=== PATIENT | male | born 1950 | race Caucasian/White ===

== ENCOUNTER 2025-02-14 13:18 | Inpatient (IN) | payer OTHER, SELFPAY ==
[2025-02-14] VITALS (17 sets, daily range): BP systolic 93–224; BP diastolic 62–197; BMI 20.9
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
[2025-02-14] MEDS: NSS 1000 IV ×2 (08:41→10:34)
[2025-02-14 09:18] LABS: Hematocrit 38.3 % (39.0-52.0); Hemoglobin 12.8 g/dL (13.0-18.0); Mean Corp Hgb Conc. 33.4 g/dL (33.0-37.0); Mean Corpuscular Volume 89.7 fL (80.0-94.0); Nucleated Red Blood Cells % 0 % (-); Red Cell Dist. Width 13.8 % (11.5-14.5)
[2025-02-14 09:47] LABS: AST (SGOT) 128 U/L (17-59); Albumin 1.3 g/dl (3.5-5.0); Alkaline Phosphatase 28 U/L (38-126); Blood Urea Nitrogen 25 mg/dl (9-20); Calcium 3.7 mg/dl (8.4-10.2); Carbon Dioxide 7 mmol/L (22-30); Chloride 114 mmol/L (98-107); Estimated Creatinine Clearance 64 ml/min; Glucose 84 mg/dl (70-99); Potassium 2.3 mmol/L (3.5-5.1); Sodium 133 mmol/L (135-145); Total Protein 3.0 g/dl (6.3-8.2); eGFR > 60.00
[2025-02-14] MEDS: CALCIUM GLUCONATE 1000 MG IV (10:01)
[2025-02-14 10:07] LABS: ALT (SGPT) 30 U/L (0-50); Magnesium 2.3 mg/dl (1.6-2.3)
[2025-02-14] MEDS: KCL 270 MEQ IV (10:24)
[2025-02-14 10:35] LABS: Platelet Count 71 10^3/uL (130-400)
[2025-02-14] MEDS: CALCIUM GLUCONATE 130 MG IV (11:12)
--- NOTE | 2025-02-14 12:28 | HPS.HSE ---
Addendum entered and electronically signed by Chad Baird MD 02/14/25 13:13:
I saw and examined the patient.
The TETRYL NITRATOR OPERATOR or PA's note was reviewed and I agree with the note.
Comment: 74-year-old male who presents with a fall and was found to have severe electrolyte abnormalities.
Gen: NAD, AAOx3, appears chronically ill and malnourished, cachectic
Eyes: EOMI, PERRLA, no scleral icterus.
Neck: supple.
CV: RRR, +S1/S2, no m/r/g.
Resp: CTAB, no rales, wheezes, or rhonchi.
Abd: +BS, soft, NT, ND
Skin: No rashes.
Neuro: CN 2-12 intact, non-focal.
Psych: Normal mood and affect.
Lab Results
02/14/25 02/14/25
09:02 10:26
WBC 8.5
RBC 4.27 L
Hgb 12.8 L
Hct 38.3 L
MCV 89.7
MCH 30.0
MCHC 33.4
RDW 13.8
Plt Count 71 L
MPV 9.9
Abs Immat Gran (auto) 0.1 H
Absolute Neuts (auto) 7.1 H
Absolute Lymphs (auto) 0.6 L
Absolute Monos (auto) 0.7 H
Absolute Eos (auto) 0.0
Absolute Basos (auto) 0.0
Immature Gran % 0.8 H
Neutrophils % 83.5 H
Lymphocytes % 7.1 L
Monocytes % 8.5
Eosinophils % 0.0
Basophils % 0.1
Nucleated RBC % 0
Sodium 133 L
Potassium 2.3 L*
Chloride 114 H
Carbon Dioxide 7 L*
BUN 25 H
Creatinine 1.0
Estimated Creat Clear 64
eGFR > 60.00
Glucose 84
Lactic Acid 3.2 H
Calcium 3.7 L*
Magnesium 2.3
Total Bilirubin 0.7
AST 128 H
ALT 30
Alkaline Phosphatase 28 L
Creatine Kinase 9094 H
Total Protein 3.0 L
Albumin 1[address] brain: No acute intracranial abnormality. Mild to moderate chronic appearing white matter disease. Small chronic focus of encephalomalacia within the right parietal lobe with adjacent skull defect.
Severe electrolyte abnormalities and mild rhabdomyolysis (non-traumatic):
-Hypocalcemia, hypokalemia
-Lactic acidosis
-non-AG metabolic acidosis
-replete all (IV and some PO)
-aggressive IVF support
-serial BMP, CPK
Cachexia and severe hypoalbuminemia:
-Concern for underlying malignancy
-CT C/A/P with PO/IV contrast
Original Note:
Family Physician
-
Family Physician: * NONE
Chief Complaint
-
Weakness
History of Present Illness
Patient is a 74 y/o male without significant past medical history who presents following a fall. Patient states around 4 am he went out to get something out of his car. He states he slipped on the ice and was not able to get up. He tried to get
into his car but he was unable. A central supply worker found him on the ground next to his car several hours later. Patient denies hitting his head or any other injury related to the fall. He reports he has not had anything to eat in about 8 days
despite having food in his home, and expresses concern he might be depressed. He reports his on Feb 06 a few years ago.
Medical History
Past Medical History
Past Medical History: Reports Other
Additional Past Medical History:
Fractured Skull with TBI
Alcohol Use Disorder - Patient reports no alcohol for about 3 years
Chronic Back Pain
Past Surgical History: Reports Other
Additional Past Surgical History:
Skull Fracture requiring surgery
Social History
Tobacco: Smoker (~1.5 packs per day (Patient reports smoking a carton a week))
Alcohol: Former
Drug: Marijuana
Family History
Family History: Not pertinent
Allergies / Home Medications
Allergies reflects when Allergies were last updated in [facility].
Home Medications with original date entered in [facility]
Allergy/Medication List:
Allergies
Allergy/AdvReac Type Severity Reaction Status Date / Time
Penicillins Allergy Rash Verified 09/21/21 10:28
Home Medications
No Meds [No Current Medications] 02/14/25
Review of Systems
-
A 12 point ROS was completed and negative except as noted: Yes
Constitutional: Reports Weight Loss
Respiratory: Denies Cough or Trouble Breathing
Cardiac: Denies Chest Pain or Palpitations
Neurological: Reports Weakness
Physical Exam
Vital Signs
Vital Signs
Temp Pulse Resp BP Pulse Ox
93.5 F L 75 20 124/84 91
02/14/25 11:20 02/14/25 11:00 02/14/25 10:30 02/14/25 11:00 02/14/25 11:00
Physical Exam
General: Comfortable, Conversant and Other (Appears thin with evidence of temporal wasting)
HEENT: NormoCephalic, Anicteric and Other (Mucous membranes are dry)
Respiratory: Clear and Non Labored Respirations
Cardiac: S1/S2 and Regular Rhythm
GI: Soft and Non Tender
Rectal: Deferred by Provider
Musculoskeletal: No Clubbing, No Cyanosis and No Edema
Skin: Warm and Dry
Neuro: Awake, Alert and No Motor Deficits
Psych: Calm
Laboratory Results
-
02/14/25 09:02
02/14/25 09:02
Laboratory Results
Lactic Acid 3.2 mmol/L (0.7-2.0) H 02/14/25 10:26
Total Bilirubin 0.7 mg/dl (0.2-1.3) 02/14/25 09:02
AST 128 U/L (17-59) H 02/14/25 09:02
ALT 30 U/L (0-50) 02/14/25 09:02
Alkaline Phosphatase 28 U/L (38-126) L 02/14/25 09:[address]:
No acute intracranial abnormality.
Mild to moderate chronic appearing white matter disease. Small chronic focus of encephalomalacia within the right parietal lobe with adjacent skull defect.
Chest X-Ray:
No acute intracranial abnormality.
Mild to moderate chronic appearing white matter disease. Small chronic focus of encephalomalacia within the right parietal lobe with adjacent skull defect.
Data Reviewed
-
Lab Data: Labs Reviewed by me
Impression/Plan
-
Severe Electrolyte Abnormalities including Hypocalcemia, Hypokalemia and Metabolic Acidosis
-Corrected Calcium ~ 6.2 - Check ionized calcium
-Replace calcium IV
-Replace potassium IV and PO
-Recheck BMP and Lactic acid later this afternoon
Hypothermia, suspect related to exposure
-Patient does not appear infected at this point in time
-Continue warming blanket
Rhabdomyolysis
-Continue IVFs
-Recheck CPK in AM
Weight Loss with significant Hypoalbuminemia
-Consult Dietary
-Check Chest/Abd/Pelvis CT to evaluate for underlying malignancy
-Patient expresses concern of depression that may be relating to his poor appetite - Consult Psych
Thrombocytopenia
-Continue to trend
Tobacco Use Disorder
-Encourage smoking cessation
-Offered nicotine patch which patient declined
DVT proph: SCDs
Code Status: Full Code
[2025-02-14 13:27] LABS: Urine Character Clear (Clear)
--- NOTE | 2025-02-14 13:32 | CM ---
Chart reviewed and spoke with pt at ED bedside
Lives alone in 1 [address]
His 2 years ago
His dtr Alley [phone] has called ED about his admission
no DME
Independent with ADLs
no PCP ; has not seen any doctor in 10-15 years
no Pharmacy
no hx of VN nor SNF
DCP is to be discussed
Cm will continue to follow up for any dcp needs
[2025-02-14 13:35] LABS: Urine Squamous Cell 0-2 /LPF (Few)
[2025-02-14 13:36] LABS: Urine White Cell 0-2 /HPF (0-5)
[2025-02-14] MEDS: OMNIPAQUE 50 ML PO (13:36)
[2025-02-14] MEDS: KCL ELIXIR 40 MEQ PO (13:36)
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
[2025-02-14 14:25] LABS: Blood Urea Nitrogen 38 mg/dl (9-20); Calcium 9.1 mg/dl (8.4-10.2); Carbon Dioxide 16 mmol/L (22-30); Chloride 103 mmol/L (98-107); Estimated Creatinine Clearance 49 ml/min; Glucose 100 mg/dl (70-99); Potassium 4.7 mmol/L (3.5-5.1); Sodium 130 mmol/L (135-145); eGFR 57.65
[2025-02-14] MEDS: NORMOSOL-R/PLASMALYTE-A 1000 IV (20:56)
[2025-02-14] MEDS: TYLENOL 650 MG PO (21:13)
[2025-02-15] VITALS (16 sets, daily range): BP systolic 88–130; BP diastolic 56–95; PULSE 90; O2SAT 92
[2025-02-15 04:41] LABS: Hematocrit 53.8 % (39.0-52.0); Hemoglobin 19.2 g/dL (13.0-18.0); Mean Corp Hgb Conc. 35.7 g/dL (33.0-37.0); Mean Corpuscular Volume 86.1 fL (80.0-94.0); Platelet Count 81 10^3/uL (130-400); Red Cell Dist. Width 14.0 % (11.5-14.5)
[2025-02-15 04:49] LABS: ALT (SGPT) 87 U/L (0-50); AST (SGOT) 514 U/L (17-59); Albumin 3.1 g/dl (3.5-5.0); Alkaline Phosphatase 58 U/L (38-126); Blood Urea Nitrogen 35 mg/dl (9-20); Calcium 8.2 mg/dl (8.4-10.2); Carbon Dioxide 21 mmol/L (22-30); Chloride 103 mmol/L (98-107); Estimated Creatinine Clearance 58 ml/min; Glucose 87 mg/dl (70-99); Magnesium 2.9 mg/dl (1.6-2.3); Potassium 5.9 mmol/L (3.5-5.1); Sodium 131 mmol/L (135-145); Total Protein 5.8 g/dl (6.3-8.2); eGFR > 60.00
--- NOTE | 2025-02-15 05:20 | PTCARENOTE ---
Addendum entered by Evangelina Berumen RN 02/15/25 05:33:
Per ED, Bottom wounds were blisters. When Pt arrived wounds were no longer blisters and serosanguineous blood was all over bed.
Original Note:
Pt having loose BM getting in wounds. FMS ordered Pt not tolerating insertion. Rectal Trumpet now in place, Pt appearing to be tolerating well. Pt wound care done again, dressing moderate with serosanguineous fluid odor noted. Pt having some
forgetfulness and confusion this morning. Pt stating he saw a 'cat run right across here'. Pt easily reoriented. labs sent and resulted with abnormals. All findings reported to PARK WORKER verbally while making rounds. Pt temperature has been maintaining
above goal with blankets. Call rosenthal within reach Bed in lowest position and alarm on.
[2025-02-15] MEDS: NSS 1000 IV ×2 (06:40→20:41)
[2025-02-15] MEDS: NORMOSOL-R/PLASMALYTE-A IV (06:42)
--- NOTE | 2025-02-15 07:49 | W.PN.HOSP.TC ---
Today's Communication/Plan
-
see plan
Assessment / Plan
Assessment / Plan
Gen: NAD, AAOx3, appears chronically ill and malnourished, cachectic
Eyes: EOMI, PERRLA, no scleral icterus.
Neck: supple.
CV: remains RRR, +S1/S2, no m/r/g.
Resp: CTAB anteriorly, no rales, wheezes, or rhonchi.
Abd: +BS, soft, NT, ND
Skin: No rashes.
Neuro: remains CN 2-12 intact, non-focal.
Psych: Normal mood and affect.
CTA C/A/P 02/14: Pulmonary parenchymal disease has progressed, as described, especially in the right lower lobe. Possible considerations may include infection, pulmonary edema, interstitial lung disease, or inhalational disorder. Mild emphysematous
lung changes, and mild generalized bronchial wall thickening. No adenopathy in the chest, abdomen, or pelvis. Mild circumferential wall thickening involving the mid to lower esophagus, raising possibility of esophagitis. Fatty infiltration of liver.
Small benign adrenal adenomas. Diverticulosis without acute diverticulitis. Nonspecific small bowel gas pattern, as described, without evidence of bowel obstruction, though clinical correlation would be advised. This could reflect nonspecific
dysmotility, which may be seen with enteritis in the proper clinical setting. Possible mild urinary bladder wall thickening. Consider further evaluation/follow-up cystoscopy. Diffuse osseous demineralization. Scoliosis. Multilevel discogenic and
facet degenerative changes. Stable chronic and chronic appearing compression deformities in the lumbar spine and thoracic spine, as described.
CT brain: No acute intracranial abnormality. Mild to moderate chronic appearing white matter disease. Small chronic focus of encephalomalacia within the right parietal lobe with adjacent skull defect.
Severe electrolyte abnormalities and rhabdomyolysis (non-traumatic):
-On admission hypocalcemia, hypokalemia, lactic acidosis, non-AG metabolic acidosis
-s/p IVFs and electrolyte replacement
-still hypocalcemic. Now hyperkalemic and CPK worsening.
-note, AM labs appears to be erroneous, repeat all AM labs
-cont IVFs
Cachexia and severe hypoalbuminemia:
-likely due to malnutrition
-no obvious evidence of malignancy as per imaging above
Other problems:
Hyponatremia, mild
Thrombocytopenia
Marijuana abuse disorder
Tobacco abuse disorder
h/o alcohol abuse disorder, sober for approximately 3 years
FULL/Lovenox
Anticipated Discharge: > 48 hours
Subjective/Interval History
-
Date of Service: February 15, 2025
Denies CP/SOB/abd pain.
Objective Data
-
Labs:
Laboratory Results
02/15/25
03:50
WBC 8.8
Hgb 19.2 H D
Hct 53.8 H
Plt Count 81 L
Sodium 131 L
Potassium 5.9 H D
Chloride 103
Carbon Dioxide 21 L
BUN 35 H
Creatinine 1.1
Glucose 87
Calcium 8.2 L
Total Bilirubin 1.4 H
AST 514 H*
ALT 87 H
Alkaline Phosphatase 58
Vital Signs:
Vital Signs
Temp Pulse Resp BP Pulse Ox
97.9 F 74 25 103/60 97
02/15/25 07:00 02/15/25 06:00 02/15/25 06:00 02/15/25 06:00 02/15/25 05:06
I&O
02/14/25 02/15/25 02/16/25
06:59 06:59 06:59
Intake Total 1220 / 1220
Output Total 775 / 775
Balance 445 / 445
[2025-02-15 09:45] LABS: Hematocrit 52.3 % (39.0-52.0); Hemoglobin 18.5 g/dL (13.0-18.0); Mean Corp Hgb Conc. 35.4 g/dL (33.0-37.0); Mean Corpuscular Volume 86.7 fL (80.0-94.0); Platelet Count 84 10^3/uL (130-400); Red Cell Dist. Width 14.1 % (11.5-14.5)
[2025-02-15 09:51] LABS: ALT (SGPT) 85 U/L (0-50); AST (SGOT) 484 U/L (17-59); Albumin 3.1 g/dl (3.5-5.0); Alkaline Phosphatase 53 U/L (38-126); Blood Urea Nitrogen 32 mg/dl (9-20); Calcium 8.1 mg/dl (8.4-10.2); Carbon Dioxide 24 mmol/L (22-30); Chloride 102 mmol/L (98-107); Estimated Creatinine Clearance 64 ml/min; Glucose 78 mg/dl (70-99); Magnesium 2.7 mg/dl (1.6-2.3); Potassium 5.3 mmol/L (3.5-5.1); Sodium 131 mmol/L (135-145); Total Protein 5.9 g/dl (6.3-8.2); eGFR > 60.00
[2025-02-15] MEDS: NICODERM TRANSDERMAL 14 MG TRANSDERM (10:00)
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
[2025-02-15] MEDS: LOVENOX 40 MG SC (17:48)
[2025-02-15] MEDS: REMOVE NICOTINE PATCH 1 PATCH REMOVE (20:39)
[2025-02-15 22:07] LABS: Blood Urea Nitrogen 22 mg/dl (9-20); Calcium 7.8 mg/dl (8.4-10.2); Carbon Dioxide 23 mmol/L (22-30); Chloride 100 mmol/L (98-107); Estimated Creatinine Clearance 92 ml/min; Glucose 96 mg/dl (70-99); Potassium 4.6 mmol/L (3.5-5.1); Sodium 127 mmol/L (135-145); eGFR > 60.00
[2025-02-16] VITALS (15 sets, daily range): BP systolic 76–101; BP diastolic 46–74
[2025-02-16] MEDS: NICODERM TRANSDERMAL 14 MG TRANSDERM (07:30)
--- NOTE | 2025-02-16 07:48 | W.PN.HOSP.TC ---
Today's Communication/Plan
-
see plan
Assessment / Plan
Assessment / Plan
Gen: NAD, Awake and alert, appears chronically ill and malnourished, cachectic
Eyes: EOMI, PERRLA, no scleral icterus.
Neck: supple.
CV: irreg/irreg, +S1/S2, no m/r/g.
Resp: CTAB anteriorly, no rales, wheezes, or rhonchi.
Abd: +BS, soft, NT, ND
Skin: No rashes.
Neuro: continues to remain remain CN 2-12 intact, non-focal.
Psych: Normal mood and affect.
CTA C/A/P 02/14: Pulmonary parenchymal disease has progressed, as described, especially in the right lower lobe. Possible considerations may include infection, pulmonary edema, interstitial lung disease, or inhalational disorder. Mild emphysematous
lung changes, and mild generalized bronchial wall thickening. No adenopathy in the chest, abdomen, or pelvis. Mild circumferential wall thickening involving the mid to lower esophagus, raising possibility of esophagitis. Fatty infiltration of liver.
Small benign adrenal adenomas. Diverticulosis without acute diverticulitis. Nonspecific small bowel gas pattern, as described, without evidence of bowel obstruction, though clinical correlation would be advised. This could reflect nonspecific
dysmotility, which may be seen with enteritis in the proper clinical setting. Possible mild urinary bladder wall thickening. Consider further evaluation/follow-up cystoscopy. Diffuse osseous demineralization. Scoliosis. Multilevel discogenic and
facet degenerative changes. Stable chronic and chronic appearing compression deformities in the lumbar spine and thoracic spine, as described.
CT brain: No acute intracranial abnormality. Mild to moderate chronic appearing white matter disease. Small chronic focus of encephalomalacia within the right parietal lobe with adjacent skull defect.
Severe electrolyte abnormalities and rhabdomyolysis (non-traumatic):
-On admission hypocalcemia, hypokalemia, lactic acidosis, non-AG metabolic acidosis
-s/p IVFs and electrolyte replacement
-cont IVFs
-AM labs pending. As per discussion with RN multiple attempts for blood work made, phlebotomy will try later.
Cachexia and severe hypoalbuminemia:
-likely due to malnutrition
-no obvious evidence of malignancy as per imaging above
Other problems:
Hyponatremia, mild
Thrombocytopenia
Marijuana abuse disorder
Tobacco abuse disorder
h/o alcohol abuse disorder, sober for approximately 3 years
FULL/Lovenox
Anticipated Discharge: > 48 hours
Subjective/Interval History
-
Date of Service: February 16, 2025
Denies CP/SOB/abd pain.
Objective Data
-
Labs:
Laboratory Results
02/15/25 02/16/25
20:39 06:00
WBC Pending
Hgb Pending
Hct Pending
Plt Count Pending
Sodium 127 L Pending
Potassium 4.6 Pending
Chloride 100 Pending
Carbon Dioxide 23 Pending
BUN 22 H Pending
Creatinine 0.7 Pending
Glucose 96 Pending
Calcium 7.8 L Pending
Total Bilirubin Pending
AST Pending
ALT Pending
Alkaline Phosphatase Pending
Vital Signs:
Vital Signs
Temp Pulse Resp BP Pulse Ox
98.7 F 94 34 98/46 94
02/16/25 03:00 02/16/25 04:00 02/16/25 04:00 02/16/25 04:00 02/16/25 04:00
I&O
02/15/25 02/16/25 02/17/25
06:59 06:59 06:59
Intake Total 1220 / 1220 240 / 240
Output Total 775 / 775 600 / 600
Balance 445 / 445 -360 / -360
--- NOTE | 2025-02-16 08:21 | W.PN.UPDATE ---
Update Note
Progress Note Update
RN reports to me that the patient is febrile to 101 �F. She mentions concern that it is his wounds on his buttocks. The patient was turned. He has an ABD that has stool. Surrounding the ABD there does appear to be skin discoloration and
breakdown. Formal wound consult placed. RN will clean the patient up prior to wound consult. Will check blood cultures and initiate empiric broad-spectrum antibiotics.
--- NOTE | 2025-02-16 08:50 | CON.ID ---
Consultation
-
Date/Time Consultation Requested: 02/16/25 8:25
Date/Time Consultation Performed: 02/16/25 9:11
Requesting Provider: Dr Baird
Performing Provider: Dr Abebe
Reason for Consultation: fever
Chief Complaint / Past History
Chief Complaint
fall
History of Present Illness
Mr Serrano is a 74 year old male with history of skull fracture with TBI, alcohol use disorder (in remission) who presents following a fall on ice. Around 4 am 02/14 he went out to get something out of his car. He slipped on the ice and was not
able to get up. He tried to get into his car but he was unable. A bone worker found him on the ground next to his car about 3 hours later. Patient denies hitting his head or any other injury related to the fall. He reports he has not had
anything to eat in about 8 days despite having food in his home, and expresses concern he might be depressed. He reports his on Feb 06 a few years ago. Reports a chronic chough which is unchanged.
Note he is on no medications prior to arrival.
Since arrival here he was initially afebrile this AM had a fever to 101, bp intermittently mildly hypotensive, wbc on arrival 8.5, hgb 12.8 plt 71, L shift is noted, Na 133 K initially 2.3 corrected later same day to 4.7, CO2 initially 7 corrected
today to 24, lactic acid initially 3.2 today normalized,CK initially 9000, yesterday 27,000, t bili 1.4, AST trending down at 484, ALT trending down at 85, alk phos 53, UA no pyuria, CT c/a/p pulmonary parenchymal disease in the right lower lobe,,
emphysema, possible esophagitis, pelvis xray: no fracture or dislocation, ct head w/o IV contrast: no acute IC abnormality. On 02/16 notified by hospitalist of extensive eschar about the bilateral buttocks and quads. Discussed with KOKI Berumen
who admitted him the lesions were initially more purple now developing into eschars but the extent of the wound is stable. She comments it looks more dry now. There is some odor from the wounds but no drainage and no surrounding erythema. No
crepitance or fluctuance, no bullae.
Past History
Additional Past Medical History:
Fractured Skull with TBI
Alcohol Use Disorder - Patient reports no alcohol for about 3 years
Chronic Back Pain
Additional Past Surgical History:
Skull Fracture requiring surgery
Allergy History:
Penicillins Allergy (Verified 09/21/21 10:28)
Rash
Medications Reviewed: Yes
Social History
Tobacco: Smoker (carton per week)
Alcohol: Former
Drug: Marijuana
Family History
Family History: Not Pertinent
Review of Systems
Review of Systems
General: Fever; Negative Chills or Change in Appetite
HEENT: Negative Lymphadenopathy, Stiff Neck or Sinus Problems
Cardiovascular: Negative Chest Pain, Dyspnea, Edema or Palpitations
Respiratory: Negative Dyspnea, Cough or Cyanosis
Gasteroenterology: Negative Weight Loss, Nausea or Vomiting
Genital / Urological: Negative Dysuria, Hematuria or Stones
Skin / Hair / Nails: Other; Negative Urticaria, Lesions or Nail Changes
Constitutional: Reports Weight Loss
Respiratory: Denies Cough or Trouble Breathing
Cardiac: Denies Chest Pain or Palpitations
Neurological: Reports Weakness
Vital Signs
Temp Pulse Resp BP Pulse Ox
98.7 F 94 34 98/46 94
02/16/25 03:00 02/16/25 04:00 02/16/25 04:00 02/16/25 04:00 02/16/25 04:00
Physical Exam
Physical Exam
Constitutional: No Acute Distress
Cardiovascular: Regular Rate and S1/S2; Negative Murmur or Rub
Pulmonary: Clear and Symmetric; Negative Wheezes, Rales or Rhonchi
Gastrointestinal: Soft, Non Tender, Non Distended and Normal Bowel Sounds
Skin: Warm and Dry; Negative Rash or Jaundice
Wound: Other (extensive eschars of the BL gluetes and quads, some odor from the wounds but no drainage and no surrounding erythema. No crepitance or fluctuance, no bullae.)
Lab / Diagnostic Study Results
Abs Immat Gran (auto) 0.1 10^3/uL (0-0.05) H 02/14/25 09:02
Absolute Neuts (auto) 7.1 10^3/uL (1.4-6.5) H 02/14/25 09:02
Absolute Lymphs (auto) 0.6 10^3/uL (1.2-3.4) L 02/14/25 09:02
Absolute Monos (auto) 0.7 10^3/uL (0.1-0.6) H 02/14/25 09:02
Absolute Basos (auto) 0.0 10^3/uL (0-0.2) 02/14/25 09:02
Immature Gran % 0.8 % (0-0.5) H 02/14/25 09:02
Neutrophils % 83.5 % (42.2-75.2) H 02/14/25 09:02
Lymphocytes % 7.1 % (20.5-51.1) L 02/14/25 09:02
Monocytes % 8.5 % (1.7-9.3) 02/14/25 09:02
Eosinophils % 0.0 % (0-6) 02/14/25 09:02
Basophils % 0.1 % (0-2) 02/14/25 09:02
Lactic Acid 1.6 mmol/L (0.7-2.0) 02/15/25 03:50
Ur Squamous Epith Cells 0-2 /LPF (Few) 02/14/25 13:23
Microbiology Results
Micro:
02/14/25 13:23 Urine Culture - Final
Urine NO GROWTH
Assessment / Plan
Dry Gangrene - Extensive Eschars around the gluteus and quadriceps
Fever
Rhabdomyolysis
Acidosis - on arrival, now resolved
- spoke with admitting RN and shared photos on tiger text, the extent of the wounds are stable, there is no crepitance, fluctuance or bullae to suggest necrotizing fasciitis at this time; CT c/a/p without evidence of gas in the tissues on arrival
- reports no respiratory symptoms beyond chronic cough which is unchanged (active smoker)
- blood cultures x2 given fever this AM
- fever could also be due to rhabdomyolysis
- continue vancomycin
- switch cefepime to meropenem
- follow exam
--- NOTE | 2025-02-16 09:11 | WOUNDNOTE ---
BUTTOCKS/THIGHS (POSTERIOR)
--- NOTE | 2025-02-16 09:12 | WOUNDNOTE ---
BUTTOCKS/THIGHS (POSTERIOR)
--- NOTE | 2025-02-16 09:12 | WOUNDNOTE ---
THIGH (POSTERIOR MEDIAL)/BUTTOCKS
--- NOTE | 2025-02-16 09:13 | WOUNDNOTE ---
BUTTOCKS/THIGHS (INNER)
--- NOTE | 2025-02-16 09:18 | WOUNDNOTE ---
L THIGH (POSTERIOR)/L HIP
--- NOTE | 2025-02-16 09:19 | WOUNDNOTE ---
L ANKLE/FOOT (LATERAL)
--- NOTE | 2025-02-16 09:21 | WOUNDNOTE ---
[facility] RN note: Patient admitted with rhabdomyolysis, abnormal electrolytes. Fall outside on ice x 3.5 hours trying to get up. Patient lives alone.
See H&P for complete history.
PMH: cachectic, ETOH disorder in past, smoker.
Wound Location and type/assessment: Patient admitted with: odorous black necrotic ulcers bilateral buttocks/inner thighs with surrounding diffuse redness (blanchable), no induration, +odor. Small scabbed abrasions on knees, ankles, elbows, R wrist.
L wrist dermal skin tear. L hip bruise, arm bruises.
Appetite: poor.
Pressure redistribution devices in place: Centrella Max air bed. He can turn slowly in bed. Air chair cushion.
Plan: Notified Dr. Baird via tiger text re: wound status including pictures. Dr. Martinez and Dr. Abebe consulted by Dr. Baird who were in to see patient. Dr. Martinez requested local wound care with Xeroform gauze, clean with Vashe. Dressings
applied by [facility] RN assistant prosecuting attorney Daphne. Patient turned to L semi side lying position with help from Daphne. Heels off bed with pillow. Discussed with KOKI Elaine.
Care plan to be updated and will follow as needed.
Note to case management of equipment requested for discharge: Air mattress.
Recommend follow up at wound care center upon discharge.
[2025-02-16] MEDS: VANCOCIN 530 MG IV (09:30)
[2025-02-16] MEDS: MERREM 500 MG IV ×3 (10:08→21:15)
[2025-02-16] MEDS: STERILE WATER FOR INJECTION 10 ML IV ×3 (10:08→21:15)
[2025-02-16 10:27] LABS: Hematocrit 48.1 % (39.0-52.0); Hemoglobin 16.4 g/dL (13.0-18.0); Mean Corp Hgb Conc. 34.1 g/dL (33.0-37.0); Mean Corpuscular Volume 86.7 fL (80.0-94.0); Platelet Count 75 10^3/uL (130-400); Red Cell Dist. Width 14.0 % (11.5-14.5)
--- NOTE | 2025-02-16 10:44 | PHA.VAN.IN ---
Assessment
- Assessment
Renal Function: Unknown baseline (0.7)
Maximum Temperature: 98.7
Concomitant Antimicrobials: meropenem
AUC Dosing Plan
- Dosing Variables
Dosing Weight (kg): 66.9
Dosing CrCl (ml/min): 88
Vd coefficient (L/kg): 0.7
- Empiric Dosing
Initial / Loading Dose: vancomycin 1500 mg x 1
Maintenance Regimen: vancomycin 1000 mg q12h
Estimated AUC (mcg*h/mL): 573
Estimated Peak (mcg*h/mL): 35.3
Estimated Trough (mcg/ml): 15.1
Estimated Half Life (H): 8.9
- Monitoring
No levels ordered at this time: consider levels in next few days
Pharmacokinetics Vancomycin I
- -
Patient Age: 74
Patient Sex: Male
Vancomycin Day #: 1
Indication: Skin And Soft Tissue
Requesting Provider: Dr. Baird
Pertinent Antimicrobial Allergies:
pcn
Height / Weight:
Height 6 ft
Actual Weight 66.9 kg
IBW in k.6
- Vital Signs / Lab Results
Temp Pulse Resp BP Pulse Ox
98.7 F 94 34 98/46 94
02/16/25 03:00 02/16/25 04:00 02/16/25 04:00 02/16/25 04:00 02/16/25 04:00
Lab Results - Hematology
02/14/25 02/15/25 02/15/25
09:02 03:50 09:25
WBC 8.5 8.8 8.2
02/16/25
10:06
WBC 6.6
Lab Results - Chemistry
02/14/25 02/14/25 02/15/25
09:02 13:39 03:50
BUN 25 H 38 H 35 H
Creatinine 1.0 1.3 1.1
Estimated Creat Clear 64 49 58
Albumin 1.3 L 3.1 L D
02/15/25 02/15/25
09:25 20:39
BUN 32 H 22 H
Creatinine 1.0 0.7
Estimated Creat Clear 64 92
Albumin 3.1 L
02/14/25 02/14/25 02/14/25
10:26 13:39 19:48
Lactic Acid 3.2 H 3.2 H 2.3 H
02/14/25 02/15/25
23:48 03:50
Lactic Acid 2.0 1.6
Lab Results - Urine
02/14/25
13:23
Urine Nitrite (Reflex) Negative
Leukocyte Esterase Rfl Negative
Urine WBC (Reflex) 0-2
Ur Squamous Epith Cells 0-2
Urine Bacteria (Reflex) Many A
Microbiology Results
02/14/25 13:23 Urine Culture - Final
Urine NO GROWTH
[2025-02-16 10:50] LABS: ALT (SGPT) 74 U/L (0-50); AST (SGOT) 288 U/L (17-59); Albumin 2.7 g/dl (3.5-5.0); Alkaline Phosphatase 53 U/L (38-126); Blood Urea Nitrogen 18 mg/dl (9-20); Calcium 7.7 mg/dl (8.4-10.2); Carbon Dioxide 23 mmol/L (22-30); Chloride 100 mmol/L (98-107); Estimated Creatinine Clearance 88 ml/min; Glucose 96 mg/dl (70-99); Magnesium 2.3 mg/dl (1.6-2.3); Potassium 4.3 mmol/L (3.5-5.1); Sodium 130 mmol/L (135-145); Total Protein 5.3 g/dl (6.3-8.2); eGFR > 60.00
--- NOTE | 2025-02-16 11:15 | CON.GS ---
Addendum entered and electronically signed by Lambert Martinez MD 02/17/25 09:34:
Delayed entry from 02/16/25
I saw and examined the patient.
The Pan Pusher's note was reviewed and I agree with the note.
Comment: Suspect he will benefit from surgical debridement. Wounds are currently still evolving, would await final demarcation prior to debridement as long as he remains stable in order to minimize anesthesia requirements.
Original Note:
Consultation
-
Date/Time Consultation Performed: 02/16/25 0945
Medical History
-
Chief Complaint: wounds
History of Present Illness:
Mr Serrano is a 74 yo male with a h/o prior ETOH abuse, COPD, TBI with fractured skull (requiring surgical repair) and current smoking who presented on 02/14 after he was found on the ice by a field crop i farmworker near his car. He notes that around 4am,
he went to get something out of his car slipping and falling on some ice. He was unable to get up and remained on the ground until the field crop i farmworker found several hours later. He notes that prior to his fall, he was not eating or drinking much
over the last 8 days or so and had been mourning the loss of his who a few years ago this time of year. He was hypothermic on arrival and was warmed adequately but now does have a fever to 101 this morning reported by staff. Wounds
to his bilateral buttocks and quads covered with eschar tissue with some bruising noted. Some foul odor noted but no drainage, purulence, fluctuance, crepitus or areas of induration.
Past Medical History
Past Medical History: COPD and Other (tbi with skull fx)
Past Surgical History: Brain (repair of skull fx)
Social History
Tobacco: Smoker (10 packs per week (1 carton))
Alcohol: Former
Drug: Marijuana
Personal:
Living: Alone
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
Family History
Family History: Reviewed & Not Pertinent
Allergies / Home Medications
Allergy/AdvReac Type Severity Reaction Status Date / Time
Penicillins Allergy Rash Verified 09/21/21 10:28
�Medication �Instructions �Recorded �Confirmed �Type
No Meds [No Current Medications] 02/14/25 02/14/25 History
Review of Systems
-
History Source: Patient and Coordinating Provider
All other systems: Negative unless noted
A 10 point review of systems was completed, and was negative except as per HPI.
Physical Exam
Vital Signs
Temp Pulse Resp BP Pulse Ox
98.7 F 94 34 98/46 94
02/16/25 03:00 02/16/25 04:00 02/16/25 04:00 02/16/25 04:00 02/16/25 04:00
02/15/25 02/16/25 02/17/25
06:59 06:59 06:59
Actual Weight 70 kg 66.9 kg
Body Mass Index (BMI) 20.0
Lab Results
02/16/25 10:06
02/16/25 10:06
WBC 6.6 10^3/uL (4.8-10.8) 02/16/25 10:06
Hgb 16.4 g/dL (13.0-18.0) 02/16/25 10:06
Hct 48.1 % (39.0-52.0) 02/16/25 10:06
Plt Count 75 10^3/uL (130-400) L 02/16/25 10:06
Abs Immat Gran (auto) 0.1 10^3/uL (0-0.05) H 02/14/25 09:02
Neutrophils % 83.5 % (42.2-75.2) H 02/14/25 09:02
Physical Exam
General: Negative Well Nourished
HEENT: Normocephalic and Moist Mucous Membranes
Respiratory: Non Labored Respirations
GI: Soft, Non Tender and Non Distended
Rectal: Other (brown diarrhea with rectal tube in place)
Skin: Warm, Dry and Other (eschar tissue overlying superficial wounds to the bilateral buttocks/quads, no drainage, fluctuance or crepitus)
Neuro: Awake, Alert and AO x 3
Psych: Calm
Data Reviewed
-
CT Scan: Image Personally Visualized and interpreted, Report Reviewed by me, Discussed with Physician, Discussed with Nurse and Discussed with Patient
Labs: Labs Reviewed by me, Discussed with Physician, Discussed with Nurse and Discussed with Patient
Old Records: Reviewed
Assessment / Plan
-
74 yo male with h/o prior ETOH abuse, COPD, TBI with fractured skull (requiring surgical repair) and current smoking who presented on 02/14 after he was found on the ice by a field crop i farmworker near his car where he had laid on the ice after a slip
and fall for about 4 hours. Poor PO intake over the last 8 days prior to fall. Bilateral buttock/thigh with likely pressure wounds with overlying eschar tissue. Some foul odor from wounds but no drainage, purulence, fluctuance, crepitus or areas of
induration. He was hypothermic on arrival and was warmed adequately but now does have a fever to 101 this morning reported by staff. BP soft low. No tachycardia. Hyponatremia present but improved. Mild elevation in lft's. No leukocytosis. CT
imaging without abscess or gas in the sq tissues. Enteritis noted on imaging with diarrhea present.
Plan:
ABX as per ID
Add CPK to am labs
Wound care following, continue local wound care
Ok to continue diet as tolerated
No need for emergent OR, but suspect he will eventually need procedure for debridment of skin
--- NOTE | 2025-02-16 11:44 | WOUNDNOTE ---
WOC RN note: Flako Fried re: recommend an air mattress at SNF for patient. He has large buttocks wounds.
[2025-02-16] MEDS: CALCIUM GLUCONATE 100 IV (12:30)
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
--- NOTE | 2025-02-16 16:03 | W.PN.UPDATE ---
Update Note
Progress Note Update
Seen for follow-up of this 74 y/o , recovering alcoholic and tobacco and marijuana smoker who was discovered on the ground by sanitation workers on 02/14/25 seen for follow-up. His history is most consistant with Hoarding Disorder. Although
he has used poor judgment, I do not believe he has an underlying psychotic disorder or major mood disorder. He had been living without heat (used electric heaters) and running water for a year and takes care of many feral cats + one rescued now
indoor cat. Today spiked a fever and has elevation in WBC; seen by ID and Surgery for wounds on buttocks.
Daughter in room. She has offered, and he has accepted, that he will live with her and her after he is discharged from a rehab program. Will take his indoor cat with him. He seems willing to stop smoking marijuana and was encouraged to
give up tobacco.
His heart rate is now hovering around 100. Na is low at 130. BP today was 92/55.
When medically stable and Na normalized, consideration could be given to use of an SSRI, although he dislikes taking medication and may do better when living with daughter.
He is alert, pleasant, oriented and appropriate today and agreeable to this long-term plan.
Psychiatry will sign off.
[2025-02-16] MEDS: LOVENOX 40 MG SC (17:26)
[2025-02-16] MEDS: VANCOCIN 200 IV (17:27)
[2025-02-16] MEDS: LR 1000 IV (18:00)
--- NOTE | 2025-02-16 19:13 | PTCARENOTE ---
day shift note. pt axillary temp 10 thiss am. physician notified. bllod cultures drawn. iv antibiotics initiated.wounds observed by hospitlist. pt seen by WOC rn and wound care ordered.iv fluids infusing.appetite is poor but pt is drinking po fluids.
[2025-02-16] MEDS: REMOVE NICOTINE PATCH 1 PATCH REMOVE (21:15)
[2025-02-17] VITALS (13 sets, daily range): BP systolic 84–115; BP diastolic 46–86; BMI 20.4
[2025-02-17] MEDS: LR 1000 IV ×3 (02:08→19:49)
[2025-02-17] MEDS: STERILE WATER FOR INJECTION 10 ML IV ×4 (05:06→21:10)
[2025-02-17] MEDS: VANCOCIN 200 IV ×2 (05:06→17:20)
[2025-02-17] MEDS: MERREM 500 MG IV ×4 (05:06→21:10)
--- NOTE | 2025-02-17 06:06 | PTCARENOTE ---
Caring for pt overnight. aaox3 but forgetful. Afebrile. BP's borderline. NSR PAC PVC ST. Q2T. Wound care. Urinal tea colored urine. Muscle aches. IVF & ivabx. Pt c/o wanting to smoke & nicotine patch not working. Stated 'nothing works. andres tried
everything.' Will monitor.
[2025-02-17 06:24] LABS: ALT (SGPT) 64 U/L (0-50); AST (SGOT) 169 U/L (17-59); Albumin 2.3 g/dl (3.5-5.0); Alkaline Phosphatase 54 U/L (38-126); Blood Urea Nitrogen 16 mg/dl (9-20); Calcium 7.9 mg/dl (8.4-10.2); Carbon Dioxide 29 mmol/L (22-30); Chloride 101 mmol/L (98-107); Estimated Creatinine Clearance 104 ml/min; Glucose 112 mg/dl (70-99); Potassium 4.0 mmol/L (3.5-5.1); Sodium 132 mmol/L (135-145); Total Protein 4.8 g/dl (6.3-8.2); eGFR > 60.00
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
--- NOTE | 2025-02-17 08:40 | PHA.VAN.FU ---
Vancomycin Assessment / Plan
- Assessment
Renal Function: Stable
WBC's are: WNL
In the past 24 hrs, patient has been: Febrile (101.1)
Concomitant Antimicrobials: MEROPENEM
- Dosing Plan
Continue: 1000MG Q12H
- Monitoring Plan
Peak Level: 02/18 @2100
Trough Level: 02/19 @0530
- Follow Up
Pharmacy will continue to follow.
Vancomycin Follow UP
- -
Patient Age: 74
Patient Sex: Male
Vancomycin Day #: 2
Indication: Skin And Soft Tissue
Requesting Provider: Dr. Baird
Pertinent Antimicrobial Allergies:
pcn
Height / Weight:
Height 6 ft
Actual Weight 68.1 kg
IBW in k.6
- Vital Signs / Lab Results
Temp Pulse Resp BP Pulse Ox
98 F 100 27 96/68 95
02/17/25 07:00 02/17/25 06:00 02/17/25 06:00 02/17/25 06:00 02/17/25 06:00
Lab Results - Hematology
02/14/25 02/15/25 02/15/25
09:02 03:50 09:25
WBC 8.5 8.8 8.2
02/16/25
10:06
WBC 6.6
Lab Results - Chemistry
02/14/25 02/14/25 02/15/25
09:02 13:39 03:50
BUN 25 H 38 H 35 H
Creatinine 1.0 1.3 1.1
Estimated Creat Clear 64 49 58
Albumin 1.3 L 3.1 L D
02/15/25 02/15/25 02/16/25
09:25 20:39 10:06
BUN 32 H 22 H 18
Creatinine 1.0 0.7 0.7
Estimated Creat Clear 64 92 88
Albumin 3.1 L 2.7 L
02/17/25
05:28
BUN 16
Creatinine 0.6 L
Estimated Creat Clear 104
Albumin 2.3 L
02/14/25 02/14/25 02/14/25
10:26 13:39 19:48
Lactic Acid 3.2 H 3.2 H 2.3 H
02/14/25 02/15/25
23:48 03:50
Lactic Acid 2.0 1.6
Microbiology Results
02/14/25 13:23 Urine Culture - Final
Urine NO GROWTH
[2025-02-17] MEDS: NICODERM TRANSDERMAL 14 MG TRANSDERM (09:04)
--- NOTE | 2025-02-17 09:46 | W.PN.ID1 ---
Date of Service
Date of Service: February 17, 2025
Today's Communication
- fever could also be due to rhabdomyolysis - follow
- continue vancomycin and meropenem for now
Assessment / Plan
Dry Gangrene - Extensive Eschars around the gluteus and quadriceps
Fever
Rhabdomyolysis
- blood cultures x2 NGTD
- fever could also be due to rhabdomyolysis - follow
- continue vancomycin and meropenem for now
- agree with plans for eventual debridement
- follow exam
Chief Complaint
-: Other (dry gangrene)
Subjective / Review of Systems
febrile to 101.1 overnight
bp hypotensive
no complaints
moderate odor from the wounds
Vital Signs / Physical Exam
Vital Signs
Vital Signs
Temp Pulse Resp BP Pulse Ox
98 F 100 27 96/68 95
02/17/25 07:00 02/17/25 06:00 02/17/25 06:00 02/17/25 06:00 02/17/25 06:00
Physical Exam
Constitutional: No Acute Distress
Cardiovascular: Regular Rate and S1/S2; Negative Murmur or Rub
Pulmonary: Clear and Symmetric; Negative Wheezes or Rales
Gastrointestinal: Soft, Non Tender, Non Distended and Normal Bowel Sounds
Skin: Warm and Dry; Negative Rash or Jaundice
Wound: Other (eschars stable without significant change, no surrounding erythema, there is prominent odor, no fluctuance or crepitance)
Objective Data
Lab Data
Lab Results
02/16/25 10:06
02/17/25 05:28
Estimated Creat Clear 104 ml/min 02/17/25 05:28
Lactic Acid 1.6 mmol/L (0.7-2.0) 02/15/25 03:50
Total Bilirubin 1.4 mg/dl (0.2-1.3) H 02/17/25 05:28
AST 169 U/L (17-59) H 02/17/25 05:28
ALT 64 U/L (0-50) H 02/17/25 05:28
Alkaline Phosphatase 54 U/L (38-126) 02/17/25 05:28
Most recent labs reviewed.
Micro Results:
02/16/25 10:46 Blood Culture - Pending
Blood/Venous
02/16/25 10:06 Blood Culture - Pending
Blood/Venous
02/14/25 13:23 Urine Culture - Final
Urine NO GROWTH
Care Review
Plan reviewed with: Physician (Dr Herrera - plastics consult)
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
--- NOTE | 2025-02-17 14:32 | PTCARENOTE ---
Caring for pt throughout the day. Aox3, forgetful. NSR with PAC's on tele monitor. Rectal trumpet in place draining liquid stool. Sacral/thigh wound care done per orders, see intervention. IVF infusing as ordered. Pt ringing appropriately, call [facility]
within reach.
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
--- NOTE | 2025-02-17 17:00 | PTCARENOTE ---
Received call from pt's daughter Alley. Daughter tearful and asking if there are any other options than [place] that may be closer to her in [facility]. Explained that [facility] was full per notes, but this RN would reach out to general surgery to see
if surgeon utility division project manager may be able to call her. Dr. Herrera notified via TT, states he will call daughter when able.
[2025-02-17] MEDS: LOVENOX 40 MG SC (17:21)
--- NOTE | 2025-02-17 17:28 | W.PN.UPDATE ---
Update Note
Progress Note Update
Pt's daughter, Alley, updated over the phone.
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
[2025-02-17] MEDS: REMOVE NICOTINE PATCH 1 PATCH REMOVE (21:14)
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
== END 2025-02-17 21:28 | disposition short-term general hospital (02) | DRG 558 ==
LOC: IMU 13:18
PROVIDERS: Physician Assistant Medical; Registered Nurse; ADMITTING PHYSICIAN Internal Medicine; CONSULT PHYSICIAN Student in an Organized Health Care Education/Training Program; CONSULT PHYSICIAN Surgery; EMERGENCY PHYSICIAN Student in an Organized Health Care Education/Training Program; OTHER PHYSICIAN Psychiatry & Neurology Psychiatry
DX: M62.82 Rhabdomyolysis (principal); Z59.12 Inadequate housing utilities; R64 Cachexia; E46 Unspecified protein-calorie malnutrition; E87.20 Acidosis, unspecified; I96 Gangrene, not elsewhere classified; E87.1 Hypo-osmolality and hyponatremia; R62.7 Adult failure to thrive; J44.9 Chronic obstructive pulmonary disease, unspecified; F17.210 Nicotine dependence, cigarettes, uncomplicated; R26.2 Difficulty in walking, not elsewhere classified; L89.326 Pressure-induced deep tissue damage of left buttock; L89.316 Pressure-induced deep tissue damage of right buttock; E86.0 Dehydration; E83.51 Hypocalcemia; E87.6 Hypokalemia; E88.09 Other disorders of plasma-protein metabolism, not elsewhere classified; G89.29 Other chronic pain; M54.9 Dorsalgia, unspecified; D69.6 Thrombocytopenia, unspecified; F43.21 Adjustment disorder with depressed mood; F12.20 Cannabis dependence, uncomplicated; F42.3 Hoarding disorder; F10.11 Alcohol abuse, in remission; F43.10 Post-traumatic stress disorder, unspecified; K76.0 Fatty (change of) liver, not elsewhere classified; R50.9 Fever, unspecified; I95.9 Hypotension, unspecified; T68.XXXA Hypothermia, initial encounter; X31.XXXA Exposure to excessive natural cold, initial encounter; W00.0XXA Fall on same level due to ice and snow, initial encounter; Y93.01 Activity, walking, marching and hiking; Y92.007 Garden or yard of unspecified non-institutional (private) residence as the place of occurrence of the external cause; Z60.2 Problems related to living alone; Z68.20 Body mass index [BMI] 20.0-20.9, adult; Z87.820 Personal history of traumatic brain injury; Z63.4 Disappearance and death of family member; Z88.0 Allergy status to penicillin; Z91.85 Personal history of military service; Z91.199 Patient's noncompliance with other medical treatment and regimen due to unspecified reason
CPT/HCPCS: 70450; 71260; 72170; 74177; 80048; 80053; 81003; 81015; 82330; 82550; 83605; 83735; 85025; 85027; 87040; 87086; 93005; 96361; 96365; 96366; 96375; 97163; 97167; 99291; Q9967